=== PATIENT | male | born 1965 ===

== ENCOUNTER 2017-08-09 09:49 | Emergency (ER) | payer MEDICAID, OTHER ==
[2017-08-09 11:01] LABS: URINE BILIRUBIN NEGATIVE (NEGATIVE); URINE BLOOD NEGATIVE (NEGATIVE); URINE CLARITY Clear (Clear); URINE COLOR Yellow (YELLOW); URINE GLUCOSE (UA) 3+ mg/dL (Normal); URINE LEUKOCYTE ESTERASE NEG Leu/uL (Negative); URINE NITRATE NEGATIVE (NEGATIVE); URINE PROTEIN 1+ mg/dL (NEGATIVE); URINE UROBILINOGEN NORMAL mg/dL (0.2-1.0)
--- NOTE | 2017-08-09 12:21 | C.PDOC ---
History Of Present Illness 52 year old male with a past medical history of diabetes presents to the emergency room complaining of left side pain, onset 9-10 days ago. Pain started a day after he had been in [place], where his flight was delayed and he ended up spending the night in a rental car. When he got home, he noticed the pain. Pain is positional, and worsens with sitting or lying for a long period of time. He denies any dysuria, frequency, hematuria, fever, chills, or vomiting. Patient has had some nausea. No prior history of kidney stones. Time Seen by Provider: 08/09/17 10:51 Chief Complaint (Nursing): Back Pain History Per: Patient History/Exam Limitations: no limitations Onset/Duration Of Symptoms: Days (x10) Current Symptoms Are (Timing): Worse Past Medical History Reviewed: Historical Data, Nursing Documentation, Vital Signs Vital Signs: Last Vital Signs Temp 98.0 F 08/09/17 15:07 Pulse 73 08/09/17 15:07 Resp 20 08/09/17 15:07 BP 136/85 08/09/17 15:07 Pulse Ox 98 08/09/17 15:51 - Medical History PMH: Diabetes (type II) Family History: States: Unknown Family Hx - Social History Hx Alcohol Use: No Hx Substance Use: No - Immunization History Hx Tetanus Toxoid Vaccination: No Hx Influenza Vaccination: No Hx Pneumococcal Vaccination: No Review Of Systems Except As Marked, All Systems Reviewed And Found Negative. Constitutional: Negative for: Fever, Chills Gastrointestinal: Positive for: Nausea, Other (left flank pain). Negative for: Vomiting Genitourinary: Negative for: Dysuria, Frequency, Hematuria Physical Exam - Physical Exam Appears: In Acute Distress (moderate painful distress) Skin: Normal Color, Warm, Dry Head: Atraumatic, Normacephalic Eye(s): bilateral: Normal Inspection, PERRL, EOMI Nose: Normal Oral Mucosa: Moist Neck: Normal ROM, Supple Chest: Symmetrical Cardiovascular: Rhythm Regular Respiratory: Normal Breath Sounds, No Accessory Muscle Use Gastrointestinal/Abdominal: Soft, No Tenderness, No Distention Back: CVA Tenderness (mild left-sided), No Vertebral Tenderness Extremity: Other (mild left groin discomfort) Extremity: Bilateral: Atraumatic, Normal Color And Temperature, Normal ROM Neurological/Psych: Oriented x3, Normal Speech ED Course And Treatment - Laboratory Results Result Diagrams: 08/09/17 13:17 08/09/17 13:17 O2 Sat by Pulse Oximetry: 98 (RA) Pulse Ox Interpretation: Normal - CT Scan/US CT abd/pelvis Other Rad Studies (CT/US): Read By Radiologist, Radiology Report Reviewed CT/US Interpretation: FINDINGS: LOWER THORAX: There are multiple subcentimeter noncalcified nodules in the visualized lungs, the largest in the right lung base measures 7 mm. LIVER: There is mild hepatomegaly. No ductal dilatation. GALLBLADDER AND BILE DUCTS: The gallbladder is contracted. PANCREAS: The pancreas appears mildly edematous with low-density and indistinct margins. No evidence of calcifications, ductal dilatation, significant inflammatory changes or peripancreatic fluid. SPLEEN: Mild splenomegaly. ADRENALS: There is a 2.2 cm adenoma in the right adrenal gland. No discrete nodule in the left adrenal gland. KIDNEYS AND URETERS: Both kidneys are normal in size without hydronephrosis or nephrolithiasis. VASCULATURE: Atherosclerotic aortoiliac calcifications. No aortic aneurysm. BOWEL: The small bowel loops are normal in caliber. There is moderate amount of stool scattered throughout the colon. No bowel dilatation or obstruction. APPENDIX: Normal appendix. PERITONEUM: No free fluid. No free air. LYMPH NODES: No enlarged lymph nodes. BLADDER: The urinary bladder is partially distended. There is apparent moderate circumferential mural thickening and the bladder wall. REPRODUCTIVE: There is mild enlargement of the prostate gland. BONES: No acute fracture. Within normal limits for the patient's age with. OTHER FINDINGS: There is a small sliding hiatal hernia. IMPRESSION: 1. Mildly enlarged and edematous pancreas with indistinct margins could represent early acute pancreatitis. Please correlate with serum lipase levels. 2. Mild hepatosplenomegaly. 3. Apparent mild circumferential mural thickening of the urinary bladder wall could be related to underdistention however cystitis cannot be excluded. Please correlate with urine analysis. ADDENDUM: This addendum is in regards to important findings in the lungs. Multiple subcentimeter pulmonary nodules, the largest in the right lung base. The differential considerations include metastasis and inflammatory nodules. A dedicated CT scan of the chest is recommended for complete evaluation of the lungs. Medical Decision Making Medical Decision Making: Initial Impression: 52 year old with flank pain Time: 13:03 Initial Plan: * CMP * CBC * Urinalysis * IV fluids * Toradol 30 mg IVP * Morphine 2 mg IVP * CT Abd/pelvis W/O contrast CT scan shows no kidney stones, but incidentally shows multiple pulmonary nodules. Discussed findings with patient in detail. He denies any chest pain or shortness of breath. Vital signs have remained stable throughout ED visit. On reevaluation patient feels better with pain meds given. Will discharge home with valium, tramadol, and motrin as needed. Patient provided with copy of CT results and advised to follow up with PMD in 1-2 days without fail. Disposition Counseled Patient/Family Regarding: Diagnosis, Need For Followup, Rx Given - Disposition Disposition: HOME/ ROUTINE Disposition Time: 15:48 Condition: STABLE Additional Instructions: Follow up with your doctor regarding the incidental findings of lung nodules found on cat scan. Take pain medications as needed. Prescriptions: diaZEpam [Valium] 5 mg PO TID #12 tab Ibuprofen [Motrin] 600 mg PO TID #15 tab traMADol/Acetaminophen [Ultracet 37.5/325 mg] 1 tab PO TID PRN #15 tab PRN Reason: pain Forms: [facility] (Azeri), Work Excuse - POA Present On Arrival: None - Clinical Impression Clinical Impression: Low back pain, Sciatica - Scribe Statement The provider has reviewed the documentation as recorded by the Scribe (Anyi Wheeler) Provider Attestation: All medical record entries made by the Scribe were at my direction and personally dictated by me. I have reviewed the chart and agree that the record accurately reflects my personal performance of the history, physical exam, medical decision making, and the department course for this patient. I have also personally directed, reviewed, and agree with the discharge instructions and disposition.
[2017-08-09] MEDS ORDERED: Sodium Chloride 0.9% 1,000 ML IV ONE (13:03)
[2017-08-09] MEDS ORDERED: Sodium Chloride 0.9% 1,000 ML ONE (13:17)
[2017-08-09 13:29] LABS: BASO % 0.3 % (0.0-2.0); EOS # 0.1 K/uL (0.0-0.7); EOS % 1.4 % (0.0-4.0); HEMOGLOBIN 13.7 g/dL (12.0-18.0); LYMPH # 4.9 K/uL (1.0-4.3); LYMPH % 47.7 % (20.0-40.0); MEAN CELL VOLUME 89.5 fL (80.0-94.0); MEAN CORPUSCULAR HEMOGLOBIN 30.8 pg (27.0-31.0); MEAN CORPUSCULAR HGB CONC 34.4 g/dL (33.0-37.0); MEAN PLATELET VOLUME 9.4 fL (7.2-11.7); MONO # 0.6 K/uL (0.0-0.8); MONO % 6.3 % (0.0-10.0); NEUT # 4.5 K/uL (1.8-7.0); NEUT % 44.3 % (50.0-75.0); NRBC % 0.2 % (0.0-2.0); RBC 4.46 Mil/uL (4.40-5.90); RED CELL DISTRIBUTION WIDTH 13.8 % (11.5-14.5); WHITE BLOOD COUNT 10.2 K/uL (4.8-10.8)
[2017-08-09 13:40] LABS: ALB/GLOB RATIO 0.8 (1.0-2.1); ALBUMIN 3.7 g/dL (3.5-5.0); ALT/SGPT 62 U/L (21-72); AST/SGOT 26 U/L (17-59); BLOOD UREA NITROGEN 18 mg/dL (9-20); CALCIUM 10.8 mg/dl (8.6-10.4); GFR AFRICAN-AMERICAN > 60; GFR NON-AFRICAN AMERICAN > 60
--- NOTE | 2017-08-09 14:09 | CT ---
PROCEDURE: CT Abdomen and Pelvis without intravenous contrast HISTORY: Abdominal pain COMPARISON: None. TECHNIQUE: CT scan of the abdomen and pelvis was performed without administration of intravenous contrast. Oral contrast was not administered. Coronal and sagittal reformatted images were obtained. Radiation dose: Total exam DLP = 421.60 mGy-cm. This CT exam was performed using one or more of the following dose reduction techniques: Automated exposure control, adjustment of the mA and/or kV according to patient size, and/or use of iterative reconstruction technique. FINDINGS: LOWER THORAX: There are multiple subcentimeter noncalcified nodules in the visualized lungs, the largest in the right lung base measures 7 mm. LIVER: There is mild hepatomegaly. No ductal dilatation. GALLBLADDER AND BILE DUCTS: The gallbladder is contracted. PANCREAS: The pancreas appears mildly edematous with low-density and indistinct margins. No evidence of calcifications, ductal dilatation, significant inflammatory changes or peripancreatic fluid. SPLEEN: Mild splenomegaly. ADRENALS: There is a 2.2 cm adenoma in the right adrenal gland. No discrete nodule in the left adrenal gland. KIDNEYS AND URETERS: Both kidneys are normal in size without hydronephrosis or nephrolithiasis. VASCULATURE: Atherosclerotic aortoiliac calcifications. No aortic aneurysm. BOWEL: The small bowel loops are normal in caliber. There is moderate amount of stool scattered throughout the colon. No bowel dilatation or obstruction. APPENDIX: Normal appendix. PERITONEUM: No free fluid. No free air. LYMPH NODES: No enlarged lymph nodes. BLADDER: The urinary bladder is partially distended. There is apparent moderate circumferential mural thickening and the bladder wall. REPRODUCTIVE: There is mild enlargement of the prostate gland. BONES: No acute fracture. Within normal limits for the patient's age with OTHER FINDINGS: There is a small sliding hiatal hernia. IMPRESSION: 1. Mildly enlarged and edematous pancreas with indistinct margins could represent early acute pancreatitis. Please correlate with serum lipase levels. 2. Mild hepatosplenomegaly. 3. Apparent mild circumferential mural thickening of the urinary bladder wall could be related to underdistention however cystitis cannot be excluded. Please correlate with urine analysis.
[2017-08-09 14:40] VITALS: RESP 20
[2017-08-09 15:08] VITALS: BP 136/85; PULSE 73; TEMP 98
[2017-08-09 15:11] LABS: LIPASE 98 U/L (23-300)
[2017-08-09 15:50] VITALS: O2SAT 98
== END 2017-08-09 16:05 | disposition home or self-care (01) ==
LOC: C.ER 09:49
DX: M54.42 Lumbago with sciatica, left side (principal)
CPT/HCPCS: 74176; 80053; 81001; 83690; 85025; 96361; 96374; 96375; 99284; J1885; J2270; J7040

== ENCOUNTER 2018-05-16 16:08 | Emergency (ER) | payer MEDICAID, OTHER ==
[2018-05-16 16:13] VITALS: BMI 28.3
[2018-05-16 16:17] VITALS: RESP 18
[2018-05-16] MEDS ORDERED: DiphenhydrAMINE 50 mg/ml Inj IVP STA (16:55)
[2018-05-16] MEDS ORDERED: Sodium Chloride 0.9% 1,000 ML IV ONE ×2 (16:55→19:24)
[2018-05-16] MEDS ORDERED: DiphenhydrAMINE 50 mg/ml Inj ONE (17:06)
[2018-05-16] MEDS ORDERED: Sodium Chloride 0.9% 1,000 ML ONE (17:07)
--- NOTE | 2018-05-16 17:34 | C.PDOC ---
History Of Present Illness 52 year old male presents to the ED for evaluation of lightheadedness which began around 3 days ago. Patient reports a room-spinning sensation when he lays down and with walking. He also reports occasional nausea. He also reports madison bility to sleep, stating he has been waking up every hour. Patient reports history of diabetes and states he has been compliant with his medications. Patient denies fever, cough, runny nose, headache, vision change, vomiting. <Gudelia Tolbert - Last Filed: 05/16/18 19:03> History Per: Patient History/Exam Limitations: no limitations Onset/Duration Of Symptoms: Days (3) Current Symptoms Are (Timing): Still Present Activity At Onset Of Symptoms: Lying, Walking Additional History Per: Patient <Gudelia Tolbert - Last Filed: 05/16/18 19:03> <Jazmine Rothman - Last Filed: 05/16/18 20:31> Time Seen by Provider: 05/16/18 16:49 Chief Complaint (Nursing): Dizziness/Lightheaded Past Medical History Reviewed: Historical Data, Nursing Documentation, Vital Signs Vital Signs: Last Vital Signs Temp 98.6 F 05/16/18 16:13 Pulse 104 H 05/16/18 16:13 Resp 18 05/16/18 16:13 BP 130/84 05/16/18 16:13 Pulse Ox 95 05/16/18 16:13 - Medical History PMH: Asthma, Diabetes (type II) Surgical History: No Surg Hx Family History: States: Unknown Family Hx - Social History Hx Alcohol Use: No Hx Substance Use: No - Immunization History Hx Tetanus Toxoid Vaccination: No Hx Influenza Vaccination: No Hx Pneumococcal Vaccination: No <TomaszGudelia L - Last Filed: 05/16/18 19:03> Vital Signs: Last Vital Signs Temp 98.6 F 05/16/18 19:16 Pulse 79 05/16/18 19:16 Resp 18 05/16/18 19:16 BP 114/78 05/16/18 19:16 Pulse Ox 96 05/16/18 19:16 <Jazmine Rothman - Last Filed: 05/16/18 20:31> Review Of Systems Constitutional: Negative for: Fever, Chills Eyes: Negative for: Vision Change ENT: Negative for: Nose Discharge Respiratory: Negative for: Cough Gastrointestinal: Positive for: Nausea. Negative for: Vomiting Musculoskeletal: Negative for: Neck Pain Neurological: Positive for: Dizziness. Negative for: Headache <Gudelia Tolbert Last Filed: 05/16/18 19:03> Physical Exam - Physical Exam Appears: Non-toxic, No Acute Distress Skin: Normal Color, Warm, Dry Head: Atraumatic, Normacephalic Eye(s): bilateral: PERRL, EOMI, Other (horizontal nystagmus ) Ear(s): Bilateral: Normal Nose: Normal, No Discharge Oral Mucosa: Moist Throat: Normal, No Erythema, No Exudate Neck: Normal ROM, Supple Chest: Symmetrical, No Deformity, No Tenderness Cardiovascular: Rhythm Regular, No Murmur Respiratory: Normal Breath Sounds, No Rales, No Rhonchi, No Wheezing Extremity: Bilateral: Atraumatic, No Pedal Edema, Normal ROM Pulses: Right Radial: Normal Neurological/Psych: Oriented x3, Normal Speech, Normal Cranial Nerves, Normal Motor, Normal Sensation Gait: Steady <Gudelia Tolbert Filed: 05/16/18 19:03> ED Course And Treatment - Laboratory Results Result Diagrams: 05/16/18 18:40 ECG: Interpreted By Me, Viewed By Me ECG Rhythm: Sinus Rhythm ECG Interpretation: No Acute Changes Rate From EC O2 Sat by Pulse Oximetry: 95 (on RA) Pulse Ox Interpretation: Normal - CT Scan/US CT Head Other Rad Studies (CT/US): Read By Radiologist, Radiology Report Reviewed CT/US Interpretation: Date of service: 05/16/2018. PROCEDURE: CT HEAD WITHOUT CONTRAST. HISTORY: Headache. COMPARISON: None available. TECHNIQUE: Axial computed tomography images were obtained through the head/brain without intravenous contrast. Radiation dose: Total exam DLP = 1596.32 mGy-cm. This CT exam was performed using one or more of the following dose reduction techniques: Automated exposure control, adjustment of the mA and/or kV according to patient size, and/or use of iterative reconstruction technique. FINDINGS: Significant streak artifact obscures evaluation of the skull base. HEMORRHAGE: No intracranial hemorrhage. BRAIN: No mass effect or edema. The mobley-white matter differentiation appears intact. Please note that MRI with diffusion imaging is more sensitive in the detection of acute ischemic event. VENTRICLES: No hydrocephalus. CALVARIUM: Unremarkable. PARANASAL SINUSES: Unremarkable as visualized. No significant inflammatory changes. MASTOID AIR CELLS: Unremarkable as visualized. No inflammatory changes. OTHER FINDINGS: None. IMPRESSION: Significant streak artifact obscures evaluation of the skull base. No acute intracranial pathology identified. <Gudelia Tolbert - Last Filed: 05/16/18 19:03> - Laboratory Results Result Diagrams: 05/16/18 18:40 05/16/18 18:40 <Jazmine Rothman - Last Filed: 05/16/18 20:31> Medical Decision Making Medical Decision Making: Impression: 52 year old male with lightheadedness Plan: * bloodwork * urinalysis * CT Head * EKG * Antivert PO * Benadryl IVP * Reglan IVP * IV Fluids * reassess and disposition Progress: Bloodwork, urinalysis, CT Head, EKG ordered and reviewed. Antivert PO, Benadryl IVP, Reglan IVP, and IV Fluids given. 0 Case signed out to night attending Dr Rothman pending labs, re-eval and dispo <Gudelia Tolbert - Last Filed: 05/16/18 19:03> Disposition - Disposition Disposition Time: 19:03 <Gudelia Tolbert - Last Filed: 05/16/18 19:03> Counseled Patient/Family Regarding: Studies Performed, Diagnosis, Need For Followup, Rx Given <Jazmine Rothman - Last Filed: 05/16/18 20:31> - Disposition Referrals: [facility] [Outside] [facility] [Outside] Disposition: HOME/ ROUTINE Condition: STABLE Additional Instructions: Please return if symptoms recur Prescriptions: Meclizine [Antivert] 25 mg PO TID #21 tab Ondansetron ODT [Zofran ODT] 1 odt PO BID PRN #6 odt PRN Reason: Nausea/Vomiting Instructions: Vertigo (a Type of Dizziness), Labyrinthitis - Clinical Impression Clinical Impression: Dizziness, Labyrinthitis - PA / FACING GRINDER / Resident Statement MD/DO has reviewed & agrees with the documentation as recorded. - Scribe Statement The provider has reviewed the documentation as recorded by the Scribe (Joan Cutler) All medical record entries made by the Scribe were at my direction and personally dictated by me. I have reviewed the chart and agree that the record accurately reflects my personal performance of the history, physical exam, medical decision making, and the department course for this patient. I have also personally directed, reviewed, and agree with the discharge instructions and disposition. <Gudelia Tolbert - Last Filed: 05/16/18 19:03> Physician Patient Turnover Patient Signed Over To: Jazmine Rothman Handoff Comments: pending labs, re-eval and dispo <Gudelia Tolbert - Last Filed: 05/16/18 19:03>
--- NOTE | 2018-05-16 17:59 | CT ---
Date of service: 05/16/2018 PROCEDURE: CT HEAD WITHOUT CONTRAST. HISTORY: Headache COMPARISON: None available. TECHNIQUE: Axial computed tomography images were obtained through the head/brain without intravenous contrast. Radiation dose: Total exam DLP = 1596.32 mGy-cm. This CT exam was performed using one or more of the following dose reduction techniques: Automated exposure control, adjustment of the mA and/or kV according to patient size, and/or use of iterative reconstruction technique. FINDINGS: Significant streak artifact obscures evaluation of the skull base. HEMORRHAGE: No intracranial hemorrhage. BRAIN: No mass effect or edema. The mobley-white matter differentiation appears intact. Please note that MRI with diffusion imaging is more sensitive in the detection of acute ischemic event. VENTRICLES: No hydrocephalus. CALVARIUM: Unremarkable. PARANASAL SINUSES: Unremarkable as visualized. No significant inflammatory changes. MASTOID AIR CELLS: Unremarkable as visualized. No inflammatory changes. OTHER FINDINGS: None. IMPRESSION: Significant streak artifact obscures evaluation of the skull base. No acute intracranial pathology identified.
[2018-05-16 18:44] LABS: BASO % 0.5 % (0.0-2.0); EOS # 0.1 K/uL (0.0-0.7); EOS % 0.9 % (0.0-4.0); LYMPH # 3.4 K/uL (1.0-4.3); LYMPH % 33.4 % (20.0-40.0); MEAN CELL VOLUME 89.6 fL (80.0-94.0); MEAN CORPUSCULAR HEMOGLOBIN 30.7 pg (27.0-31.0); MEAN CORPUSCULAR HGB CONC 34.3 g/dL (33.0-37.0); MEAN PLATELET VOLUME 9.7 fL (7.2-11.7); MONO # 0.7 K/uL (0.0-0.8); MONO % 6.9 % (0.0-10.0); NEUT % 58.3 % (50.0-75.0); RBC 4.56 Mil/uL (4.40-5.90); RED CELL DISTRIBUTION WIDTH 13.8 % (11.5-14.5); WHITE BLOOD COUNT 10.2 K/uL (4.8-10.8)
[2018-05-16 19:10] LABS: ALBUMIN 3.9 g/dL (3.5-5.0); ALT/SGPT 50 U/L (21-72); AST/SGOT 25 U/L (17-59); BLOOD UREA NITROGEN 19 mg/dL (9-20); CALCIUM 10.3 mg/dl (8.6-10.4); GFR NON-AFRICAN AMERICAN > 60
[2018-05-16 19:40] LABS: SQUAMOUS EPITHIAL < 1 /hpf (0-5); URINE BILIRUBIN NEGATIVE (NEGATIVE); URINE BLOOD NEGATIVE (NEGATIVE); URINE CLARITY Clear (Clear); URINE COLOR Yellow (YELLOW); URINE GLUCOSE (UA) 3+ mg/dL (Normal); URINE LEUKOCYTE ESTERASE NEG Leu/uL (Negative); URINE PROTEIN NEGATIVE (NEGATIVE); URINE UROBILINOGEN NORMAL mg/dL (0.2-1.0)
[2018-05-16 20:43] VITALS: BP 118/80; PULSE 88; TEMP 98.4; O2SAT 95
--- NOTE | 2018-05-19 05:11 | CARD ---
APPROVED REPORT Date of service: 05/16/2018 EKG Measurement Heart [id number] <Conclusion> Normal sinus rhythm Normal ECG
== END 2018-05-16 20:44 | disposition home or self-care (01) ==
LOC: C.ER 16:08
DX: H83.09 Labyrinthitis, unspecified ear (principal); R42 Dizziness and giddiness
CPT/HCPCS: 70450; 80053; 81001; 85025; 93005; 96361; 96374; 96375; 99285; J1200; J2765; J7030